=== PATIENT | female | born 1955 | race Caucasian/White ===

== ENCOUNTER 2016-08-08 22:38 | Emergency (ER) | payer MEDICARE, OTHER ==
[~2016-08-08] VITALS: Ht 170.2 cm; Wt 102.0 kg
[~2016-08-08 22:38] MED LIST: DIFL150T PO; ENAL20TA PO; FLAG500T PO; LEVEMIR SC; LOPI600T PO; METF850T PO; SIMV20TA PO; ZYPR10TA PO
[2016-08-08 22:48] VITALS: BP 137/63; PULSE 92; RESP 16; TEMP 98.3; O2SAT 95
--- NOTE | 2016-08-09 00:09 | PD ---
HPI Chief Complaint: Skin Problem Time Seen by Provider: 00:01 Travel History International Travel<30 days: No Contact w/Intl Traveler<30days: No Traveled to known affect area: No History of Present Illness HPI 60-year-old white female presents to emergency Department with complaints of right foot swelling and pain. She states that she was outside 2 nights ago in the dark with her dog when she was bit by something on the top of her right foot. She states that it became very pruritic in nature. She scratched it vigorously. Now it has become tender, red and swollen. She has not had a tetanus shot over 5 years. No fever or chills. She does state that she has diabetic. PFSH Past Medical History Arthritis: Yes Asthma: No Autoimmune Disease: No Blood Disorders: No Bipolar Disorder: Yes Anxiety: Yes Depression: Yes Heart Rhythm Problems: Yes (Sometimes palpitations.) Cancer: No Cardiovascular Problems: Yes High Cholesterol: No Chemotherapy: No Chest Pain: No Congestive Heart Failure: No COPD: No Cerebrovascular Accident: No Diabetes: Yes Patient Takes Glucophage: Yes Diminished Hearing: No Endocrine: No Gastrointestinal Disorders: Yes GERD: No Glaucoma: No Genitourinary: Yes (Urinary Tract Infections) Headaches: Yes Hepatitis: No Hiatal Hernia: No Hypertension: Yes Immune Disorder: No Kidney Stones: No Musculoskeletal: Yes Neurologic: No Psychiatric: Yes Reproductive: Yes (UTERINE FIBROID) Respiratory: No Migraines: Yes Myocardial Infarction: No Radiation Therapy: No Renal Failure: No Seizures: No Sleep Apnea: No Ulcer: No Tetanus Vaccination: < 5 Years Influenza Vaccination: No Menopausal: Yes : 4 Para: 1 Miscarriage: 3 : 3 Tubal Ligation: Yes Past Surgical History Abdominal Surgery: No AICD: No Appendectomy: No Arteriovenous Shunt: No Cardiac Surgery: No Cholecystectomy: No Ear Surgery: No Endocrine Surgery: No Eye Surgery: No Genitourinary Surgery: No Gynecologic Surgery: Yes Insulin Pump: No Joint Replacement: No Oral Surgery: No Pacemaker: No Thoracic Surgery: No Other Surgery: Yes (Tubal Ligation.) Social History Alcohol Use: No Tobacco Use: No (quit smoking 16 years ago) Substance Use: No Allergies-Medications (Allergen,Severity, Reaction): Coded Allergies: Codeine (Verified Allergy, Severe, Tachycardia, 08/08/16) Penicillin (Verified Allergy, Severe, 08/08/16) Reported Meds & Prescriptions Reported Meds & Active Scripts Active Triamcinolone Topical (Triamcinolone Acetonide) 0.1% Cream 1 Applic TOPICAL BID Bactroban Topical (Mupirocin) 2 % Cream 1 Applic TOPICAL TID Review of Systems Except as stated in HPI: all other systems reviewed are Neg General / Constitutional: No: Fever, Chills Eyes: No: Diploplia, Blurred Vision HENT: No: Headaches, Vertigo Cardiovascular: No: Chest Pain or Discomfort, Palpitations Respiratory: No: Cough, Shortness of Breath Gastrointestinal: No: Nausea, Vomiting, Abdominal Pain Genitourinary: No: Frequency Musculoskeletal: Positive: Edema, Pain, No: Limited ROM, Weakness Skin: Positive Rash, Positive Itching Physical Exam Narrative GENERAL: This is a well-nourished, well-developed patient, in no apparent distress. SKIN: No rashes, ecchymoses or lesions. Warm and dry. HEAD: Atraumatic. Normocephalic. EYES: PERRL, EOMI, no discharge or injection. No scleral icterus. EARS: Clear NOSE: Nasal turbinates appear normal. THROAT: Mucosa pink and moist. Airway patent. NECK: Trachea midline. supple, moves head freely. LUNGS: Clear to auscultation. CV: Regular in rhythm. ABDOMEN: Soft nontender. EXT: No clubbing cyanosis. Examination the right lower extremity reveals edema of the distal forefoot with traumatic ecchymosis and excoriations. There is no purulent drainage. Minimal erythema. This appears to be secondary to being scratched vigorously. I don't see any evidence of true cellulitis or abscess. Data Data Last Documented VS Vital Signs Date Time Temp Pulse Resp B/P Pulse Ox O2 Delivery O2 Flow Rate FiO2 08/08/16 22:48 98.3 92 16 137/63 95 Room Air Orders Diphenhydramine (Benadryl) (08/09/16 00:15) Tetanus/Diphtheria Tox Adult (Tetanus/Di (08/09/16 00:15) MDM Medical Decision Making Medical Screen Exam Complete: Yes Emergency Medical Condition: Yes Medical Record Reviewed: Yes Differential Diagnosis MDM: High Differential diagnoses: Abscess, folliculitis, cellulitis, lymphangitis, abrasion, contact dermatitis Narrative Course The patient will be given Bactroban cream as well as a topical steroid. This is edema from her excoriations and reaction from her insect bite. This does not look typically infected at this time. Tetanus updated. Patient's given Benadryl 50 mg by mouth. Diagnosis Primary Impression: Insect bite of abdomen with local reaction Qualified Code: S30.861A - Insect bite of abdomen with local reaction, initial encounter Additional Impression: Multiple excoriations Patient Instructions: General Instructions Additional Instructions: Rest. Elevation. Ice. Tylenol for pain. Benadryl 50 mg every 6 hours as needed for itching. Daily wound care with soap and water. Triamcinolone cream and Bactroban. Recheck with your doctor in the next 48 hours. Return to the ER for any problems. Med/Other Pt SpecificInfo: Prescription(s) given, Wound Care Scripts Triamcinolone Topical 0.1% Cream1 Applic TOPICAL BID #30 GM Ref 0 Prov:Charlie Starks MD 08/09/16 Mupirocin Topical (Bactroban Topical)2 % Cream1 Applic TOPICAL TID #1 TUBE Ref 0 Prov:Charlie Starks MD 08/09/16 Disposition: 01 DISCHARGE HOME Condition: Stable Ermias Young Aug 09, 2016 00:09
[2016-08-09] MEDS ORDERED: TRIA.1%T TOPICAL (00:12)
[2016-08-09] MEDS ORDERED: MUPI2%T TOPICAL (00:12)
[2016-08-09] MEDS ORDERED: diphenhydrAMINE HCL 50 MG CAP PO ONE (00:15)
[2016-08-09] MEDS ORDERED: TETANUS/DIPHTHERIA TOXOID ADULT 0.5 ML VIAL IM ONE (00:15)
== END 2016-08-09 00:33 | disposition home or self-care (01) ==
LOC: NEPB 22:38
DX: S90.861A Insect bite (nonvenomous), right foot, initial encounter (principal); E11.9 Type 2 diabetes mellitus without complications; I10 Essential (primary) hypertension; W57.XXXA Bitten or stung by nonvenomous insect and other nonvenomous arthropods, initial encounter; Y93.K1 Activity, walking an animal; Z23 Encounter for immunization
CPT/HCPCS: 90471; 90714; 99281; Q0163

== ENCOUNTER 2017-02-26 08:28 | Emergency (ER) | payer MEDICARE, OTHER ==
[~2017-02-26] VITALS: Ht 170.2 cm; Wt 110.0 kg
[~2017-02-26 08:28] MED LIST changes: -DIFL150T PO; -ENAL20TA PO; -FLAG500T PO; -LEVEMIR SC; -LOPI600T PO; -METF850T PO; +MUPI2%T TOPICAL; -SIMV20TA PO; +TRIA.1%T TOPICAL; -ZYPR10TA PO
[2017-02-26 08:31] VITALS: BP 204/90; PULSE 96; RESP 20; TEMP 97.9; O2SAT 95
[2017-02-26] MEDS ORDERED: LISI10TA3 PO (09:21)
[2017-02-26] MEDS ORDERED: METF500T PO (09:21)
[2017-02-26] MEDS ORDERED: NOVOINJ2 SQ (09:21)
[2017-02-26] MEDS ORDERED: KETOROLAC TROMETHAMINE 60 MG/2 ML (IM) VIAL IM ONE (09:30)
--- NOTE | 2017-02-26 10:00 | RADRPT ---
EXAM DATE/TIME: 02/26/2017 09:36 [facility] COMPARISON: No previous studies available for comparison. INDICATIONS : No known injury, pain left lower back radiating into left hip. MEDICAL HISTORY : None. SURGICAL HISTORY : None. ENCOUNTER: Initial ACUITY: 3 days PAIN SCORE: 10/10 LOCATION: Left lumbar spine. FINDINGS: There are degenerative changes throughout the lumbar spine with loss of disc space height at all leve ls. There are posterior osteophytes at L1-2, L2-3 and L3-4. There moderate degenerative facets at L 4-5 and L5-S1. There is partial fusion at L5-S1. CONCLUSION: Degenerative changes as described above. MRI may be of benefit. Eliseo Martinez MD FACR on February 26, 2017 at 9:55 Board Certified Radiologist. This report was verified electronically.
[2017-02-26] MEDS ORDERED: MELO7.5T4 PO (10:15)
[2017-02-26] MEDS ORDERED: GABA100C4 PO (10:15)
--- NOTE | 2017-02-26 10:15 | PD ---
HPI Chief Complaint: Numbness/Tingling Time Seen by Provider: 08:57 Travel History International Travel<30 days: No Contact w/Intl Traveler<30days: No Traveled to known affect area: No History of Present Illness HPI This is a 61 year old female who presents to the emergency department with severe pain in her hips. She has chronic hip pain but over the past several days she's developed increasing pain in the left side radiating down the left hip and left buttock associated with some numbness in her left lower leg. She denies any weakness. She's been able to walk. She takes hydrocodone at home for pain. She denies any urinary retention, or fecal or urinary incontinence. She does report that she's had increasing tingling in both feet. She has a history of diabetes. She is hopeful to follow-up with a neurosurgeon or an orthopedist regarding her back pain. PFSH Past Medical History Arthritis: Yes Asthma: No Autoimmune Disease: No Blood Disorders: No Bipolar Disorder: Yes Anxiety: Yes Depression: Yes Heart Rhythm Problems: Yes (Sometimes palpitations.) Cancer: No Cardiovascular Problems: Yes High Cholesterol: No Chemotherapy: No Chest Pain: No Congestive Heart Failure: No COPD: No Cerebrovascular Accident: No Diabetes: Yes Patient Takes Glucophage: No Diminished Hearing: No Endocrine: No Gastrointestinal Disorders: Yes GERD: No Glaucoma: No Genitourinary: Yes (Urinary Tract Infections) Headaches: Yes Hepatitis: No Hiatal Hernia: No Hypertension: Yes Immune Disorder: No Kidney Stones: No Musculoskeletal: Yes Neurologic: No Psychiatric: Yes Reproductive: Yes (UTERINE FIBROID) Respiratory: No Migraines: Yes Myocardial Infarction: No Radiation Therapy: No Renal Failure: No Seizures: No Sleep Apnea: No Ulcer: No Tetanus Vaccination: < 5 Years Menopausal: Yes : 4 Para: 1 Miscarriage: 3 : 3 Tubal Ligation: Yes Past Surgical History Abdominal Surgery: No AICD: No Appendectomy: No Arteriovenous Shunt: No Cardiac Surgery: No Cholecystectomy: No Ear Surgery: No Endocrine Surgery: No Eye Surgery: No Genitourinary Surgery: No Gynecologic Surgery: Yes Insulin Pump: No Joint Replacement: No Oral Surgery: No Pacemaker: No Thoracic Surgery: No Other Surgery: Yes (Tubal Ligation.) Social History Alcohol Use: No Tobacco Use: No (quit smoking 16 years ago) Substance Use: No Allergies-Medications (Allergen,Severity, Reaction): Coded Allergies: codeine (Unverified Allergy, Severe, Tachycardia, 02/26/17) penicillin G (Unverified Allergy, Severe, 02/26/17) Reported Meds & Prescriptions Reported Meds & Active Scripts Active Reported Novolog Mix 70-30 FlexPen Inj (Insulin Aspart Protam-Asp 70-30 Inj) 300 Unit/3 Ml Pen 30 Units SQ BID Metformin (Metformin HCl) 500 Mg Tab 500 Mg PO TIDPC With meals Lisinopril Unknown Strength Tab Unknown Dose PO DAILY Review of Systems Except as stated in HPI: all other systems reviewed are Neg Physical Exam Narrative GENERAL:Well appearing, no acute distress SKIN: Focused skin assessment warm and dry. HEAD: Atraumatic. Normocephalic. EYES: Pupils equal and round. No injection or drainage. ENT: Moist mucous membranes NECK: Trachea midline. CARDIOVASCULAR: Regular rate and rhythm. No murmur appreciated. 2+ bilateral DP pulses. RESPIRATORY: Clear to auscultation. Breath sounds equal bilaterally. GASTROINTESTINAL: Abdomen soft, non-tender, nondistended. MUSCULOSKELETAL: Pain with straight leg raise on the left. NEUROLOGICAL: Awake and alert. No obvious cranial nerve deficits. Moving all extremities. Normal rectal tone. PSYCHIATRIC: Appropriate mood and affect; insight and judgment normal. Data Data Last Documented VS Vital Signs Date Time Temp Pulse Resp B/P (MAP) Pulse Ox O2 Delivery O2 Flow Rate FiO2 02/26/17 08:31 97.9 96 20 204/90 (128) 95 Room Air Orders Orders Spine, Lumbar - Ltd (Ap & Lat) (02/26/17 ) Ketorolac Inj (Toradol Inj) (02/26/17 09:30) [facility] Medical Decision Making Medical Screen Exam Complete: Yes Emergency Medical Condition: Yes Interpretation(s) Afebrile, mild tachycardia, hypertensive Last 24 hours Impressions Lumbar Spine X-Ray 02/26/17 0000 Signed Impressions: Service Date/Time: Sunday, February 26, 2017 09:36 - CONCLUSION: Degenerative changes as described above. MRI may be of benefit. Eliseo Martinez MD FACR Differential Diagnosis Sciatica, cauda equina syndrome, peripheral neuropathy Narrative Course This is a 61-year-old female who presents to the emergency department with pain radiating from the left buttock down the left leg as well as numbness and tingling in both feet which has been going on for several weeks. She has a history of chronic pain for which she takes Lortab. She is a normal neurologic exam including normal rectal tone. I suspect the paresthesias in her feet are related to diabetic neuropathy and they're unrelated to her radicular pain. We discussed trying a low-dose of meloxicam for her pain and gabapentin. She has plans to follow-up with Dr. De Leon in one week. Diagnosis Primary Impression: Lumbosacral radiculopathy Additional Impression: Diabetic neuropathy Qualified Codes: E13.42 - Other specified diabetes mellitus with diabetic polyneuropathy Patient Instructions: General Instructions Additional Instructions: If you develop weakness of your legs, difficulty walking, numbness of your legs or your genital or rectal area, loss of your bowel or bladder, or difficulty urinating return to the emergency department immediately. Followup with your primary care physician in one week if your symptoms have not improved. Med/Other Pt SpecificInfo: Prescription(s) given Scripts Meloxicam (Meloxicam) 7.5 Mg Tab 7.5 MG PO DAILY for Arthritis Pain, #30 TAB 0 Refills Prov: Joie Carrington MD 02/26/17 Gabapentin (Gabapentin) 100 Mg Cap 100 MG PO TID, #90 CAP 0 Refills Prov: Joie Carrington MD 02/26/17 Disposition: 01 DISCHARGE HOME Condition: Stable Joie Carrington MD Feb 26, 2017 10:15
== END 2017-02-26 10:46 | disposition home or self-care (01) ==
LOC: NEPE 08:28
DX: M54.17 Radiculopathy, lumbosacral region (principal); E13.42 Other specified diabetes mellitus with diabetic polyneuropathy; I10 Essential (primary) hypertension; Z79.4 Long term (current) use of insulin; Z87.39 Personal history of other diseases of the musculoskeletal system and connective tissue; Z86.59 Personal history of other mental and behavioral disorders; Z86.79 Personal history of other diseases of the circulatory system; Z87.19 Personal history of other diseases of the digestive system; Z87.448 Personal history of other diseases of urinary system
CPT/HCPCS: 72100; 96372; 99284; J1885

== ENCOUNTER 2017-06-22 15:20 | Emergency (ER) | payer MEDICARE, OTHER ==
[~2017-06-22] VITALS: Ht 170.2 cm; Wt 104.5 kg
[~2017-06-22 15:20] MED LIST changes: +GABA100C4 PO; +LISI10TA3 PO; +MELO7.5T27 PO; +METF500T PO; -MUPI2%T TOPICAL; +NOVOINJ2 SQ; -TRIA.1%T TOPICAL
[2017-06-22 15:22] VITALS: BP 170/76; PULSE 91; RESP 16; TEMP 98.6; O2SAT 99
--- NOTE | 2017-06-22 22:47 | PD ---
Physical Exam Date Seen by Provider: Jun 22, 2017 Time Seen by Provider: 16:29 Narrative 61-year-old female presents to the emergency department for evaluation of right arm swelling that started 4-5 days ago. She states that she feels like she has a knot to her upper arm. Pain is 10/10. Data Data Last Documented VS Vital Signs Date Time Temp Pulse Resp B/P (MAP) Pulse Ox O2 Delivery O2 Flow Rate FiO2 06/22/17 16:29 06/22/17 15:22 98.6 91 16 99 MDM Supervised Visit with FAUSTO: No Narrative Course 61-year-old female presents to the emergency department for evaluation of right arm pain and swelling that started 4-5 days ago. Patient is initially seen in triage. Workup is started. Patient left AGAINST MEDICAL ADVICE before being moved to medical bed. Diagnosis Primary Impression: Left against medical advice Additional Impression: Arm swelling Disposition: 07 AGAINST MEDICAL ADVICE Brittney Land Jun 22, 2017 22:47
== END 2017-06-22 16:37 | disposition left against medical advice (07) ==
LOC: NED 15:20
DX: M79.89 Other specified soft tissue disorders (principal)
CPT/HCPCS: 99281

== ENCOUNTER 2017-06-28 11:21 | Emergency (ER) | payer MEDICARE, OTHER ==
[~2017-06-28] VITALS: Ht 170.2 cm; Wt 108.6 kg
[2017-06-28 11:22] VITALS: BP 191/102; PULSE 100; RESP 20; TEMP 97.8; O2SAT 96
[2017-06-28] MEDS ORDERED: SODIUM CHLORIDE 0.9% FLUSH 10 ML FLUSH IVF PRN (12:45)
[2017-06-28] MEDS ORDERED: KETOROLAC TROMETHAMINE 30 MG/ML (IVP) VIAL IV PUSH ONE (12:45)
[2017-06-28] MEDS ORDERED: INSULIN HUMAN REGULAR 1,000 UNITS/10 ML VIAL IV PUSH ONE (12:45)
[2017-06-28 13:16] LABS: BACTERIA, URINE OCC /hpf; BILIRUBIN, URINE NEG (NEG); BLOOD, URINE SMALL (NEG); GLUCOSE,URINE 1000 mg/dL (NEG); KETONE, URINE 40 mg/dL (NEG); MUCUS URINE FEW /lpf (OCC); NITRITE,URINE NEG (NEG); PH, URINE 5.5 (5.0-8.5); SQUAMOUS EPITHELIAL CELL URINE 3 /hpf (0-5); TRANSITIONAL EPI CELLS, URINE <1 /hpf; URINE COLOR YELLOW (YELLW/STRAW); URINE LEUKOCYTE ESTERASE SMALL (NEG)
[2017-06-28] MEDS ORDERED: KETOROLAC TROMETHAMINE 60 MG/2 ML (IM) VIAL IM ONE (13:30)
[2017-06-28] MEDS ORDERED: INSULIN HUMAN REGULAR 1,000 UNITS/10 ML VIAL SQ ONE (13:30)
[2017-06-28] MEDS ORDERED: MACR100C2 PO (13:45)
--- NOTE | 2017-06-28 13:45 | PD ---
HPI Chief Complaint: Musculoskeletal Complaint Time Seen by Provider: 11:55 Travel History International Travel<30 days: No Contact w/Intl Traveler<30days: No Traveled to known affect area: No History of Present Illness HPI Patient is a 61-year-old female presents emergency Department with right wrist pain radiating up her right arm for the past 24 hours. Patient states she has a history of diabetes not taken her insulin in the past 3 days, states she has a history of radiculopathy her lower extremities and feels similar. No chest pain no shortness of breath no injury. States that she is also not taken her blood sugar in some time. Denies any fevers nausea vomiting diarrhea. Chest pain is moderate, location as above, radiation as above, context as above, cannot elicit any alleviating testing factors and not associated with any weakness. PFSH Past Medical History Arthritis: Yes Asthma: No Autoimmune Disease: No Blood Disorders: No Bipolar Disorder: Yes Anxiety: Yes Depression: Yes Heart Rhythm Problems: Yes (Sometimes palpitations.) Cancer: No Cardiovascular Problems: Yes High Cholesterol: No Chemotherapy: No Chest Pain: No Congestive Heart Failure: No COPD: No Cerebrovascular Accident: No Diabetes: Yes Patient Takes Glucophage: Yes Diminished Hearing: No Endocrine: No Gastrointestinal Disorders: Yes GERD: No Glaucoma: No Genitourinary: Yes (Urinary Tract Infections) Headaches: Yes Hepatitis: No Hiatal Hernia: No Hypertension: Yes Immune Disorder: No Kidney Stones: No Musculoskeletal: Yes Neurologic: No Psychiatric: Yes Reproductive: Yes (UTERINE FIBROID) Respiratory: No Migraines: Yes Myocardial Infarction: No Radiation Therapy: No Renal Failure: No Seizures: No Sleep Apnea: No Ulcer: No Menopausal: Yes : 4 Para: 1 Miscarriage: 3 : 3 Tubal Ligation: Yes Past Surgical History Abdominal Surgery: No AICD: No Appendectomy: No Arteriovenous Shunt: No Cardiac Surgery: No Cholecystectomy: No Ear Surgery: No Endocrine Surgery: No Eye Surgery: No Genitourinary Surgery: No Gynecologic Surgery: Yes Insulin Pump: No Joint Replacement: No Oral Surgery: No Pacemaker: No Thoracic Surgery: No Other Surgery: Yes (Tubal Ligation.) Social History Alcohol Use: Yes (OCCASSIONAL) Tobacco Use: No (quit smoking 16 years ago) Substance Use: No Allergies-Medications (Allergen,Severity, Reaction): Coded Allergies: codeine (Unverified Allergy, Severe, Tachycardia, 02/26/17) penicillin G (Unverified Allergy, Severe, 02/26/17) Reported Meds & Prescriptions Reported Meds & Active Scripts Active Macrobid (Nitrofurantoin Monoh/Nitrofur Macro) 100 Mg Cap 100 Mg PO BID 7 Days Meloxicam 7.5 Mg Tab 7.5 Mg PO DAILY Gabapentin 100 Mg Cap 100 Mg PO TID Reported Novolog Mix 70-30 FlexPen Inj (Insulin Aspart Protam-Asp 70-30 Inj) 300 Unit/3 Ml Pen 30 Units SQ BID Metformin (Metformin HCl) 500 Mg Tab 500 Mg PO TIDPC With meals Lisinopril Unknown Strength Tab Unknown Dose PO DAILY Review of Systems Except as stated in HPI: all other systems reviewed are Neg Physical Exam Narrative GENERAL: Well-developed, morbidly obese female in no obvious distress. SKIN: Focused skin assessment warm/dry. HEAD: Atraumatic. Normocephalic. EYES: Pupils equal and round. No scleral icterus. No injection or drainage. ENT: No nasal bleeding or discharge. Mucous membranes pink and moist. NECK: Trachea midline. No JVD. CARDIOVASCULAR: Regular rate and rhythm. No murmur appreciated. RESPIRATORY: No accessory muscle use. Clear to auscultation. Breath sounds equal bilaterally. GASTROINTESTINAL: Abdomen soft, non-tender, nondistended. Hepatic and splenic margins not palpable. MUSCULOSKELETAL: No obvious deformities. No clubbing. No cyanosis. No edema. No gross deformity of either upper extremity, no swelling, wrist nontender, elbow nontender, she has 5 out of 5 strength in bilateral extension agent strength as well as flexion at the elbow. 2+ bilateral equal pulses in all 4 extremities, pulse motor and sensory intact distally in all 4 extremities. NEUROLOGICAL: Awake and alert. No obvious cranial nerve deficits. Motor grossly within normal limits. Normal speech. PSYCHIATRIC: Appropriate mood and affect; insight and judgment normal. Data Data Last Documented VS Vital Signs Date Time Temp Pulse Resp B/P (MAP) Pulse Ox O2 Delivery O2 Flow Rate FiO2 06/28/17 14:29 06/28/17 11:22 97.8 100 20 96 Room Air Orders Orders Urinalysis - C+S If Indicated (06/28/17 12:12) Bedside Glucose ISA.CSUGAR (06/28/17 12:12) Sodium Chloride 0.9% Flush (Ns Flush) (06/28/17 12:45) Ketorolac Inj (Toradol Inj) (06/28/17 12:45) Insulin Human Regular Inj (Novolin R Inj (06/28/17 12:45) Urine Culture (06/28/17 12:30) Insulin Human Regular Inj (Novolin R Inj (06/28/17 13:30) Ketorolac Inj (Toradol Inj) (06/28/17 13:30) Labs Laboratory Tests Test 06/28/17 12:30 Urine Color YELLOW Urine Turbidity CLEAR Urine pH 5.5 Urine Specific [place] 1.040 Urine Protein TRACE mg/dL Urine Glucose (UA) 1000 mg/dL Urine Ketones 40 mg/dL Urine Occult Blood SMALL Urine Nitrite NEG Urine Bilirubin NEG Urine Urobilinogen LESS THAN 2.0 MG/DL Urine Leukocyte Esterase SMALL Urine RBC 15 /hpf Urine WBC 21 /hpf Urine Squamous Epithelial Cells 3 /hpf Urine Transitional Epithelial Cells <1 /hpf Urine Bacteria OCC /hpf Urine Mucus FEW /lpf Urine Yeast (Budding) RARE Microscopic Urinalysis Comment CULTURE INDICATED MDM Medical Decision Making Medical Screen Exam Complete: Yes Emergency Medical Condition: Yes Differential Diagnosis Radiculopathy, cervical degenerative disc disease, diabetic neuropathy, fracture unlikely, hyperglycemia, DKA. Narrative Course Patient roomed in emergency department, his first or arm pain goes there is no medical emergency that exists years highly consistent with worsening radiculopathy or diabetic neuropathy. On further review of systems patient states she's also having some visual abnormality which is vague and difficult to describe, blood sugar was taken is in excess of 400, number recommended for her basic labs to rule out DKA kidney disease and control of her blood sugar in the emergency department, she's refused basic labs, subcutaneous insulin was given instead. Blood sugar is improving. She does have some evidence for urinary tract infection will be started on Macrobid. At this time the patient understands that if her sugar goes uncontrolled she is running risk of heart disease kidney disease dehydration as well as DKA. She verbalized understanding and acceptance of this risks and adamantly denies any blood work. Therefore she can sign out AMA and is signed a formal paper. She was invited to return to emerged Department any time, offered to refill her insulin she states that she has at home and she just needs to take it. Diagnosis Primary Impression: Hyperglycemia Additional Impressions: Right arm pain Visual changes UTI (urinary tract infection) Referrals: [facility] Med/Other Pt SpecificInfo: Prescription(s) given Scripts Nitrofurantoin Monohydrate Macrocrystals (Macrobid) 100 Mg Cap 100 MG PO BID for Infection for 7 Days, #14 CAP 0 Refills Prov: Charlie Starks MD 06/28/17 Disposition: 07 AGAINST MEDICAL ADVICE Condition: Stable Charlie Starks MD Jun 28, 2017 13:45
== END 2017-06-28 14:29 | disposition left against medical advice (07) ==
LOC: NEPD 11:21
DX: E11.65 Type 2 diabetes mellitus with hyperglycemia (principal); M79.601 Pain in right arm; N39.0 Urinary tract infection, site not specified; I10 Essential (primary) hypertension; Z79.4 Long term (current) use of insulin; Z87.891 Personal history of nicotine dependence
CPT/HCPCS: 81001; 87086; 96372; 99284; J1815; J1885